=== PATIENT | female | born 1950 | race Hispanic/Latino ===

== ENCOUNTER 2020-04-09 14:38 | Inpatient (IN) | payer MEDICARE ==
[~2020-04-09] VITALS: Ht 152.4 cm; Wt 43.7 kg
[~2020-04-09 14:38] MED LIST: ALEN70TA69 PO; CEFD250S3 PO; GLYB5TAB8 PO; IBUP-2077 PO; INSU100V12 SQ; METF-445 PO; SERT50TA12 PO; SIMV10TA97 PO; [UNRECOGNIZED DRUG - CODE] MC
[2020-04-09 15:25] LABS: BASOPHILS % (AUTO) 0.1 % (0.0-5.0); LYMPHOCYTES % (AUTO) 4.6 % (21.0-51.0); MEAN CORPUSCULAR HEMOGLOBIN 26.8 pg (27.0-33.0); MEAN CORPUSCULAR HGB CONC 31.8 g/dL (32.0-36.0); MEAN CORPUSCULAR VOLUME 84.2 fL (79-99); MONOCYTES % (AUTO) 5.3 % (3.0-13.0); NEUTROPHILS % (AUTO) 89.7 % (40.0-77.0); PLATELET COUNT (AUTO) 188 K/uL (130-400); RED BLOOD CELL COUNT(AUTO) 4.63 MIL/uL (4.00-5.50); WHITE BLOOD COUNT (AUTO) 14.2 K/uL (4.8-10.8)
[2020-04-09 15:37] LABS: POTASSIUM 3.9 mmol/L (3.5-5.1)
[2020-04-09 15:39] LABS: INR 0.92 (0.85-1.15); PARTIAL THROMBOPLASTIN TIME 21.6 SEC (26.3-35.5)
[2020-04-09 15:46] LABS: ALBUMIN 3.5 g/dL (3.5-5.0); BILIRUBIN,TOTAL 1.1 mg/dL (0.2-1.0); TOTAL PROTEIN, SERUM 8.5 g/dL (6.0-8.3)
[2020-04-09] MEDS ORDERED: ONDANSETRON HCL 4 MG/2 ML VIAL ONE (15:54)
[2020-04-09] MEDS ORDERED: MORPHINE SULFATE 2 MG/ML 1ML SYG ONE (15:54)
[2020-04-09] MEDS ORDERED: SODIUM CHLORIDE 0.9% 500ML 500 ML IV ONE (15:55)
[2020-04-09] MEDS ORDERED: HYDRALAZINE HCL 20 MG/ML VIAL IV PRN (16:00)
[2020-04-09] MEDS ORDERED: ZOLPIDEM TARTRATE 5 MG TAB PO PRN (16:00)
[2020-04-09] MEDS ORDERED: LACTULOSE 20 GM/30 ML UDCUP PO PRN (18:45)
[2020-04-09] MEDS ORDERED: DEXTROSE 50%-WATER 50 ML DISP.SYRIN IV PRN (19:00)
[2020-04-09] MEDS: CEFTRIAXONE SODIUM 1 GM IVP SCH (19:00)
[2020-04-09] MEDS ORDERED: GLUCAGON 1MG KIT 1 MG ML IM PRN (19:00)
[2020-04-09] MEDS: FAMOTIDINE 20MG TAB 20 MG TAB PO SCH (21:00)
[2020-04-09] MEDS: INSULIN HUMULIN R 100 UNIT/ML 3ML SQ SCH (21:00)
[2020-04-09] MEDS ORDERED: CEFTRIAXONE SODIUM 1 GM ONE (21:24)
[2020-04-09] MEDS ORDERED: FAMOTIDINE 20MG TAB 20 MG TAB ONE (21:24)
[2020-04-09] MEDS ORDERED: INSULIN HUMULIN R 100 UNIT/ML 3ML ONE (21:25)
[2020-04-09] MEDS ORDERED: ACETAMINOPHEN 325 MG TAB ONE (21:37)
[2020-04-09 22:15] VITALS: BP 129/88
--- NOTE | 2020-04-09 22:15 | NUR ---
ADMISSION PATIENT RECEIVED FROM ER S/P FAL RIGHT INTRATROCHANTERIC FRACTURE OF FEMUR UNDER THE CARE OF . PATIENT AWAKE AND ALERT. VOICES ALL NEEDS. NO COMPLAINTS OF PAIN VOICED AT THIS TIME. VITALS STABLE. AFEBRILE. ORIENTATED TO HOSPITAL AND ROOM. HEAD TO TOE ASSESSMENT DONE. NO SKIN BREAKDOWN NOTED. CALL LIGHT WITHIN REACH. WILL CONTINUE TO BE OBSERVED. Addendum: 04/10/20 at 0615 by SHAUN SAUNDERS RN RN Amended: Links added.
[2020-04-09 22:27] LABS: APPEARANCE,URINE Clear (CLEAR); BILIRUBIN,URINE Negative (NEGATIVE); COLOR,URINE Yellow (YELLOW); GLUCOSE, URINE (UA) >=1000 mg/dL (NEGATIVE); KETONES,URINE >=80 mg/dL (NEGATIVE); LEUKOCYTE ESTERASE ,URINE Negative (NEGATIVE); NITRATE,URINE Negative (NEGATIVE); OCCULT BLOOD,URINE Negative (NEGATIVE); PROTEIN,URINE Trace mg/dL (NEGATIVE)
[2020-04-09] MEDS ORDERED: INSU100V12 SQ (22:49)
[2020-04-09 23:20] LABS: RBC,URINE None Seen /HPF (0-1)
[2020-04-09 23:21] LABS: BACTERIA,URINE Few /HPF (None Seen); SQUAMOUS EPITHELIAL CELL,UR Few /HPF (0-2)
[2020-04-10] MEDS: MORPHINE SULFATE 2 MG/ML 1ML SYG IVP PRN ×4 (01:06→20:08)
[2020-04-10 03:40] VITALS: BP 129/66
[2020-04-10 03:46] LABS: BASOPHILS % (AUTO) 0.3 % (0.0-5.0); EOSINOPHILS % (AUTO) 0.4 % (0.0-8.0); LYMPHOCYTES % (AUTO) 12.4 % (21.0-51.0); MEAN CORPUSCULAR HEMOGLOBIN 26.4 pg (27.0-33.0); MEAN CORPUSCULAR HGB CONC 32.4 g/dL (32.0-36.0); MEAN CORPUSCULAR VOLUME 81.5 fL (79-99); MONOCYTES % (AUTO) 5.9 % (3.0-13.0); NEUTROPHILS % (AUTO) 80.6 % (40.0-77.0); PLATELET COUNT (AUTO) 159 K/uL (130-400); RED BLOOD CELL COUNT(AUTO) 4.05 MIL/uL (4.00-5.50); RED CELL DISTRIBUTION WIDTH 13.7 % (11.0-15.5); WHITE BLOOD COUNT (AUTO) 9.9 K/uL (4.8-10.8)
[2020-04-10 04:06] LABS: ALBUMIN 2.9 g/dL (3.5-5.0); BILIRUBIN,TOTAL 0.7 mg/dL (0.2-1.0); CREATININE 0.8 mg/dL (0.5-1.5); POTASSIUM 3.3 mmol/L (3.5-5.1); TOTAL PROTEIN, SERUM 7.1 g/dL (6.0-8.3)
[2020-04-10] MEDS: INSULIN HUMULIN R 100 UNIT/ML 3ML SQ SCH ×4 (06:41→20:11)
[2020-04-10] MEDS ORDERED: POTASSIUM CHLORIDE 20 MEQ ERTAB PO SCH (07:15)
[2020-04-10 08:09] VITALS: BP 150/58
[2020-04-10] MEDS: FAMOTIDINE 20MG TAB 20 MG TAB PO SCH ×2 (08:59→20:08)
[2020-04-10] MEDS: ENOXAPARIN SODIUM 30 MG/0.3 ML SQ SCH (09:01)
[2020-04-10 11:21] VITALS: BP 144/62
[2020-04-10] MEDS: CEFTRIAXONE SODIUM 1 GM IVP SCH (16:06)
[2020-04-10 16:21] VITALS: BP 141/62
--- NOTE | 2020-04-10 16:56 | NUR ---
DC PLAN VISITED WITH PATIENT. PATIENT LIVES WITH DAUGHTER. SEMI INDEPENDENT WITH ADL'S. PATIENT HAS WHEEL CHAIR AND WALKER. PROVIDER 4 HOURS A DAY. WANTS SHOWER TRANSFER CHAIR AND HOSPITAL BED OKAY WITH GOING TO FACILITY IF NEEDED AFTER SURGERY. Addendum: 04/10/20 at 1658 by ABDIFATAH GUZMAN RN CM Amended: Links added.
[2020-04-10 19:59] VITALS: BP 144/63
[2020-04-10 23:28] VITALS: BP 108/60
[2020-04-11] MEDS: MORPHINE SULFATE 2 MG/ML 1ML SYG IVP PRN ×4 (00:28→16:38)
[2020-04-11 03:58] LABS: BASOPHILS % (AUTO) 0.4 % (0.0-5.0); EOSINOPHILS % (AUTO) 0.5 % (0.0-8.0); HEMATOCRIT 34.6 % (36-48); LYMPHOCYTES % (AUTO) 11.6 % (21.0-51.0); MEAN CORPUSCULAR HEMOGLOBIN 26.7 pg (27.0-33.0); MEAN CORPUSCULAR HGB CONC 32.4 g/dL (32.0-36.0); MEAN CORPUSCULAR VOLUME 82.4 fL (79-99); MONOCYTES % (AUTO) 6.1 % (3.0-13.0); NEUTROPHILS % (AUTO) 81.1 % (40.0-77.0); PLATELET COUNT (AUTO) 163 K/uL (130-400); RED CELL DISTRIBUTION WIDTH 13.9 % (11.0-15.5); WHITE BLOOD COUNT (AUTO) 9.4 K/uL (4.8-10.8)
[2020-04-11 04:02] VITALS: BP 137/61
[2020-04-11 04:11] LABS: CREATININE 0.4 mg/dL (0.5-1.5); POTASSIUM 3.8 mmol/L (3.5-5.1)
[2020-04-11] MEDS: INSULIN HUMULIN R 100 UNIT/ML 3ML SQ SCH ×4 (05:24→22:08)
[2020-04-11 08:00] VITALS: BP 131/60
[2020-04-11] MEDS: FAMOTIDINE 20MG TAB 20 MG TAB PO SCH ×2 (09:00→21:45)
[2020-04-11] MEDS: ENOXAPARIN SODIUM 30 MG/0.3 ML SQ SCH (09:00)
[2020-04-11 12:00] VITALS: BP 123/61
--- NOTE | 2020-04-11 15:27 | NUR ---
Rec'd phone call from Dr. Shea with orders to reschedule pt's surgery for tomorrow @ 0700 am, pt may have diet now, NPO after MN. Orders entered as requested. Notified primary nurse Emelyn who will update pt/family. Notified dietary of need for tray. Notified OR screen printing loader unloader
[2020-04-11 16:00] VITALS: BP 125/47
[2020-04-11] MEDS: SODIUM CHLORIDE 0.9% 1000ML 1,000 ML IV SCH (16:36)
[2020-04-11] MEDS: CEFTRIAXONE SODIUM 1 GM IVP SCH (18:46)
[2020-04-11 20:08] VITALS: BP 134/56
[2020-04-12] VITALS (28 sets, daily range): BP systolic 115–153; BP diastolic 42–99
[2020-04-12] MEDS: MORPHINE SULFATE 2 MG/ML 1ML SYG IVP PRN ×2 (01:15→23:34)
[2020-04-12] MEDS: SODIUM CHLORIDE 0.9% 1000ML 1,000 ML IV SCH ×3 (01:50→15:10)
[2020-04-12 06:00] LABS: BASOPHILS % (AUTO) 0.1 % (0.0-5.0); EOSINOPHILS % (AUTO) 0.8 % (0.0-8.0); HEMATOCRIT 32.5 % (36-48); LYMPHOCYTES % (AUTO) 11.4 % (21.0-51.0); MEAN CORPUSCULAR HEMOGLOBIN 26.4 pg (27.0-33.0); MEAN CORPUSCULAR VOLUME 82.5 fL (79-99); MONOCYTES % (AUTO) 6.8 % (3.0-13.0); NEUTROPHILS % (AUTO) 80.6 % (40.0-77.0); PLATELET COUNT (AUTO) 148 K/uL (130-400); RED BLOOD CELL COUNT(AUTO) 3.94 MIL/uL (4.00-5.50); RED CELL DISTRIBUTION WIDTH 13.3 % (11.0-15.5); WHITE BLOOD COUNT (AUTO) 8.8 K/uL (4.8-10.8)
[2020-04-12] MEDS: INSULIN HUMULIN R 100 UNIT/ML 3ML SQ SCH ×4 (06:11→22:14)
[2020-04-12 06:20] LABS: CREATININE 0.5 mg/dL (0.5-1.5); POTASSIUM 3.4 mmol/L (3.5-5.1)
--- NOTE | 2020-04-12 06:24 | NUR ---
TRANSFER TO OR BY OR NURSE. CHART TRANSFERRED WITH PT- CONSENT IN CHART. DAUGHTER WENT DOWN WITH PT TO OR HOLDING AREA.
[2020-04-12] MEDS ORDERED: MIDAZOLAM HCL 1 MG/ML 2ML VIAL ONE (07:00)
[2020-04-12] MEDS ORDERED: FENTANYL CITRATE PF 50 MCG/1 ML 2ML VIAL ONE (07:00)
[2020-04-12] MEDS ORDERED: LIDOCAINE PF 2% 5ML ABBOJECT ONE (07:00)
[2020-04-12] MEDS ORDERED: PROPOFOL 10 MG/ML 20ML VIAL IV ONE (07:00)
[2020-04-12] MEDS ORDERED: ONDANSETRON HCL 4 MG/2 ML VIAL ONE (07:00)
[2020-04-12] MEDS ORDERED: ROCURONIUM 10MG/1ML SYR 10 MG/ML ML ONE (07:01)
[2020-04-12] MEDS ORDERED: EPHEDRINE SULFATE 50 MG/ML AMPULE ONE (07:12)
[2020-04-12] MEDS ORDERED: ROPIVACAINE 0.5% 5MG/ML 30ML IJ ONE (07:22)
[2020-04-12] MEDS ORDERED: POLYETHYLENE GLYCOL 3350 17 GM POWD.PACK PO SCH ×2 (08:00→16:00)
[2020-04-12] MEDS ORDERED: CEFAZOLIN SODIUM 1 GM VIAL ONE (08:07)
[2020-04-12] MEDS ORDERED: NEOSTIGMINE 5MG/5ML SYR IV ONE (08:09)
[2020-04-12] MEDS ORDERED: GLYCOPYRROLATE 1 MG/5 ML SYRINGE ONE (08:09)
[2020-04-12] MEDS ORDERED: SUGAMMADEX SODIUM 200 MG/2 ML VIAL IV ONE (08:19)
[2020-04-12] MEDS: ENOXAPARIN SODIUM 30 MG/0.3 ML SQ SCH (09:00)
[2020-04-12] MEDS: FAMOTIDINE 20MG TAB 20 MG TAB PO SCH ×2 (09:00→19:54)
[2020-04-12] MEDS ORDERED: DIPHENHYDRAMINE HCL 25 MG CAPSULE PO PRN (09:30)
[2020-04-12] MEDS ORDERED: FERROUS FUMARATE 324 MG TABLET PO PRN (09:30)
[2020-04-12] MEDS ORDERED: DiphenhydrAMINE HCL 50 MG/ML VIAL IVP PRN (09:30)
[2020-04-12] MEDS ORDERED: CALCIUM CARBONATE 500 MG TABLET PO PRN (09:30)
[2020-04-12] MEDS ORDERED: POTASSIUM CHLORIDE 20 MEQ ERTAB PO SCH (16:00)
[2020-04-12] MEDS ORDERED: SENNOSIDES 8.6 MG TABLET PO SCH (16:00)
[2020-04-12] MEDS: ACETAMINOPHEN 325 MG TAB PO PRN (18:56)
[2020-04-12] MEDS: CEFTRIAXONE SODIUM 1 GM IVP SCH (18:59)
[2020-04-13 00:28] VITALS: BP 147/71
[2020-04-13 04:28] VITALS: BP 145/61
[2020-04-13] MEDS: SODIUM CHLORIDE 0.9% 1000ML 1,000 ML IV SCH (04:30)
[2020-04-13 05:50] LABS: BASOPHILS % (AUTO) 0.4 % (0.0-5.0); EOSINOPHILS % (AUTO) 0.9 % (0.0-8.0); HEMATOCRIT 32.2 % (36-48); MEAN CORPUSCULAR HEMOGLOBIN 26.5 pg (27.0-33.0); MEAN CORPUSCULAR VOLUME 82.8 fL (79-99); MONOCYTES % (AUTO) 8.8 % (3.0-13.0); NEUTROPHILS % (AUTO) 82.7 % (40.0-77.0); PLATELET COUNT (AUTO) 156 K/uL (130-400); RED BLOOD CELL COUNT(AUTO) 3.89 MIL/uL (4.00-5.50); RED CELL DISTRIBUTION WIDTH 13.4 % (11.0-15.5); WHITE BLOOD COUNT (AUTO) 8.1 K/uL (4.8-10.8)
[2020-04-13] MEDS: INSULIN HUMULIN R 100 UNIT/ML 3ML SQ SCH ×4 (05:57→21:00)
[2020-04-13 06:05] LABS: CREATININE 0.5 mg/dL (0.5-1.5); MAGNESIUM 1.6 mg/dL (1.80-2.40); POTASSIUM 3.7 mmol/L (3.5-5.1)
[2020-04-13] MEDS ORDERED: MAGNESIUM 2GM PREMIX 50ML 50 ML IV PRN (07:45)
[2020-04-13 08:00] VITALS: BP 146/68
[2020-04-13] MEDS: ENOXAPARIN SODIUM 30 MG/0.3 ML SQ SCH (09:06)
[2020-04-13] MEDS: FAMOTIDINE 20MG TAB 20 MG TAB PO SCH ×2 (09:06→20:51)
[2020-04-13 11:58] VITALS: BP 143/59
[2020-04-13] MEDS: HYDROCODONE/ACETAMINOPHEN 5/325 MG TAB PO PRN ×2 (11:59→20:52)
[2020-04-13] MEDS: METRONIDAZOLE 500 MG TABLET PO SCH ×2 (12:01→20:51)
[2020-04-13] MEDS ORDERED: GADODIAMIDE 10 MMOL/20 ML VIAL IV ONE (12:57)
[2020-04-13 16:00] VITALS: BP 132/66
[2020-04-13] MEDS: CEFTRIAXONE SODIUM 1 GM IVP SCH (18:42)
[2020-04-13 19:00] VITALS: BP 138/64
--- NOTE | 2020-04-13 19:14 | NUR ---
CM NOTE CM attempted to speak to patient regarding MD recommendations for short term snf/rehab. Patient unable to make decision and asked CM to call family member on facesheet. CM attempted phone call to lauri Vaughn on facesheet. No answer, unable to leave message. CM to follow u. Addendum: 04/13/20 at 1916 by ASHLEY DAS CM Amended: Links added.
[2020-04-14] VITALS (7 sets, daily range): BP systolic 116–145; BP diastolic 58–68
[2020-04-14 04:29] LABS: BASOPHILS % (AUTO) 0.2 % (0.0-5.0); EOSINOPHILS % (AUTO) 0.8 % (0.0-8.0); HEMATOCRIT 30.8 % (36-48); LYMPHOCYTES % (AUTO) 8.3 % (21.0-51.0); MEAN CORPUSCULAR HEMOGLOBIN 26.5 pg (27.0-33.0); MEAN CORPUSCULAR HGB CONC 31.8 g/dL (32.0-36.0); MEAN CORPUSCULAR VOLUME 83.2 fL (79-99); MONOCYTES % (AUTO) 8.8 % (3.0-13.0); NEUTROPHILS % (AUTO) 81.7 % (40.0-77.0); PLATELET COUNT (AUTO) 168 K/uL (130-400); RED CELL DISTRIBUTION WIDTH 13.5 % (11.0-15.5); WHITE BLOOD COUNT (AUTO) 5.3 K/uL (4.8-10.8)
[2020-04-14 04:44] LABS: CREATININE 0.6 mg/dL (0.5-1.5); POTASSIUM 3.5 mmol/L (3.5-5.1)
[2020-04-14] MEDS ORDERED: LABETALOL HCL 5 MG/ML 20ML VIAL IV PRN (05:15)
[2020-04-14] MEDS: METRONIDAZOLE 500 MG TABLET PO SCH ×3 (05:27→20:28)
--- NOTE | 2020-04-14 05:33 | NUR ---
LAB CALLED LAB TO ADD ON MAGNESIUM ORDER TO LABS. JESSICA SAID "OK". ORDER PLACED FOR ADD ON
[2020-04-14] MEDS: HYDROCODONE/ACETAMINOPHEN 5/325 MG TAB PO PRN ×2 (06:09→12:17)
[2020-04-14] MEDS: INSULIN HUMULIN R 100 UNIT/ML 3ML SQ SCH ×4 (06:25→21:00)
[2020-04-14] MEDS ORDERED: POTASSIUM CHLORIDE 20 MEQ ERTAB PO SCH (07:30)
[2020-04-14] MEDS: FAMOTIDINE 20MG TAB 20 MG TAB PO SCH ×2 (09:21→20:28)
[2020-04-14] MEDS: ENOXAPARIN SODIUM 30 MG/0.3 ML SQ SCH (09:21)
[2020-04-14] MEDS: ACETAMINOPHEN 325 MG TAB PO PRN ×2 (09:22→17:58)
[2020-04-14] MEDS: POLYETHYLENE GLYCOL 3350 17 GM POWD.PACK PO SCH (09:24)
--- NOTE | 2020-04-14 16:22 | NUR ---
DC MATTY CALLED [facility] NOT AVAILABLE. CALLED TIN UNDERWOOD NO ANSWER LM TO CALL BACK. Addendum: 04/14/20 at 1622 by ABDIFATAH GUZMAN RN CM Amended: Links added.
[2020-04-14] MEDS: CEFTRIAXONE SODIUM 1 GM IVP SCH (18:27)
[2020-04-15 03:46] VITALS: BP 136/70
[2020-04-15] MEDS: METRONIDAZOLE 500 MG TABLET PO SCH ×3 (04:26→21:03)
[2020-04-15 05:31] LABS: BASOPHILS % (AUTO) 0.2 % (0.0-5.0); EOSINOPHILS % (AUTO) 1.3 % (0.0-8.0); HEMATOCRIT 32.3 % (36-48); LYMPHOCYTES % (AUTO) 13.7 % (21.0-51.0); MEAN CORPUSCULAR HEMOGLOBIN 26.1 pg (27.0-33.0); MEAN CORPUSCULAR HGB CONC 32.2 g/dL (32.0-36.0); MEAN CORPUSCULAR VOLUME 81.2 fL (79-99); MONOCYTES % (AUTO) 10.8 % (3.0-13.0); NEUTROPHILS % (AUTO) 73.6 % (40.0-77.0); PLATELET COUNT (AUTO) 186 K/uL (130-400); RED BLOOD CELL COUNT(AUTO) 3.98 MIL/uL (4.00-5.50); WHITE BLOOD COUNT (AUTO) 4.5 K/uL (4.8-10.8)
[2020-04-15 05:47] LABS: CREATININE 0.5 mg/dL (0.5-1.5); POTASSIUM 4.2 mmol/L (3.5-5.1)
[2020-04-15] MEDS: INSULIN HUMULIN R 100 UNIT/ML 3ML SQ SCH ×4 (07:18→21:00)
[2020-04-15 08:01] VITALS: BP 117/58
[2020-04-15] MEDS ORDERED: BISACODYL 10 MG SUPP.RECT RC PRN (09:30)
[2020-04-15] MEDS: POLYETHYLENE GLYCOL 3350 17 GM POWD.PACK PO SCH (10:42)
[2020-04-15] MEDS: FAMOTIDINE 20MG TAB 20 MG TAB PO SCH ×2 (10:44→21:03)
[2020-04-15] MEDS: ENOXAPARIN SODIUM 30 MG/0.3 ML SQ SCH (10:44)
[2020-04-15] MEDS: HYDROCODONE/ACETAMINOPHEN 5/325 MG TAB PO PRN ×2 (10:45→16:47)
[2020-04-15 11:16] VITALS: BP 115/52
--- NOTE | 2020-04-15 13:53 | NUR ---
DC PLAN VISITED WITH PATIENT. STILL A LITTLE CONFUSED. SPOKE TO DAUGHTER SEVERAL TIMES TODAY. SAID WILL BE BY HOSPITAL. DID NOT WANT TO GIVE OKAY FOR SNF OVER THE PHONE. LEFT LIST OF SNF IN ROOM. Addendum: 04/15/20 at 1356 by ABDIFATAH GUZMAN RN CM Amended: Links added.
[2020-04-15 16:41] VITALS: BP 123/44
[2020-04-15 20:00] VITALS: BP 128/62
[2020-04-15] MEDS: CEFTRIAXONE SODIUM 1 GM IVP SCH (21:03)
[2020-04-15 23:37] VITALS: BP 125/58
[2020-04-16] MEDS: HYDROCODONE/ACETAMINOPHEN 5/325 MG TAB PO PRN ×2 (03:22→09:00)
--- NOTE | 2020-04-16 03:27 | NUR ---
PATIENT AWAKE, CRIES OUT, STATES SHE HAS PAIN TO HER LEGS. PRN PAIN MEDICATION ADMINISTERED. WILL CONT TO MONITOR CLOSELY.
[2020-04-16 04:07] VITALS: BP 108/82
[2020-04-16] MEDS: METRONIDAZOLE 500 MG TABLET PO SCH ×3 (04:12→20:07)
[2020-04-16] MEDS: INSULIN HUMULIN R 100 UNIT/ML 3ML SQ SCH ×5 (05:24→21:00)
[2020-04-16 08:21] VITALS: BP 130/64
[2020-04-16] MEDS: FAMOTIDINE 20MG TAB 20 MG TAB PO SCH ×2 (09:00→20:07)
[2020-04-16] MEDS: POLYETHYLENE GLYCOL 3350 17 GM POWD.PACK PO SCH (09:00)
[2020-04-16] MEDS: ENOXAPARIN SODIUM 30 MG/0.3 ML SQ SCH (09:01)
--- NOTE | 2020-04-16 10:24 | NUR ---
SERG PLAN VISITED WITH PATIENT AND DAUGHTER. GOT [facility] FOR [facility], [employer]. SENT PACKET TO [employer]. RUTH ANN HILLIARD. MARY WILL CONTINUE TO FOLLOW. Addendum: 04/16/20 at 1025 by ABDIFATAH GUZMAN RN CM Amended: Links added.
[2020-04-16 11:36] VITALS: BP 132/64
--- NOTE | 2020-04-16 12:30 | NUR ---
RODRIGUEZ REMOVED AFTER 7 CC FLUID REMOVED FROM [place]; PT TOLERATED PROCEDURE WELL AND DIAPER PLACED ON PATIENT .
[2020-04-16 16:23] VITALS: BP 134/65
[2020-04-16] MEDS: CEFTRIAXONE SODIUM 1 GM IVP SCH (18:31)
[2020-04-16 19:35] VITALS: BP 153/78
[2020-04-16] MEDS: INSULIN GLARGINE 100 UNITS/ML 10 ML VIAL SQ SCH ×2 (21:00→21:39)
--- NOTE | 2020-04-16 21:22 | NUR ---
PATIENT RECEIVED IN BED, AAOX2 TO SELF AND PLACE. REORIENTED TO DX AND POC. POD #4 RIGHT FEMUR IM NAILING. DRESSING WAS CHANGED BY DAY SHIFT NURSE. PATIENT REMAINS WITH GENERAL BODY WEAKNESS, REFER TO PHYSICAL THERAPY NOTES. AT THIS TIME PATIENT IS TIRED, SHE DID NOT SLEEP LAST NIGHT OR DURING DAY. RR EVEN AND NON-LABORED. PATIENT WITH POOR ORAL INTAKE. PM INSULIN LANTUS NOT ADMINISTERED D/T POOR ORAL INTAKE. GLUCOSE LEVEL AT 144. WILL CONT TO MONITOR CLOSELY. PATIENT IS HIGH RISK FOR FALLS. Addendum: 04/16/20 at 2140 by JOYA MELGOZA RN RN LANTUS 15 UNITS ADMINISTERED PER ORDERS. REFER TO GLUCOSE TREND
[2020-04-16 23:39] VITALS: BP 115/59
[2020-04-17 03:51] VITALS: BP 132/61
[2020-04-17 03:51] LABS: BASOPHILS % (AUTO) 0.3 % (0.0-5.0); EOSINOPHILS % (AUTO) 0.8 % (0.0-8.0); HEMATOCRIT 33.9 % (36-48); LYMPHOCYTES % (AUTO) 18.5 % (21.0-51.0); MEAN CORPUSCULAR HEMOGLOBIN 26.7 pg (27.0-33.0); MEAN CORPUSCULAR HGB CONC 32.7 g/dL (32.0-36.0); MEAN CORPUSCULAR VOLUME 81.7 fL (79-99); MONOCYTES % (AUTO) 11.2 % (3.0-13.0); NEUTROPHILS % (AUTO) 68.9 % (40.0-77.0); PLATELET COUNT (AUTO) 260 K/uL (130-400); RED BLOOD CELL COUNT(AUTO) 4.15 MIL/uL (4.00-5.50); RED CELL DISTRIBUTION WIDTH 13.3 % (11.0-15.5)
[2020-04-17] MEDS: METRONIDAZOLE 500 MG TABLET PO SCH ×3 (03:53→18:32)
[2020-04-17] MEDS: HYDROCODONE/ACETAMINOPHEN 5/325 MG TAB PO PRN ×3 (03:53→14:40)
[2020-04-17 04:15] LABS: ALBUMIN 2.4 g/dL (3.5-5.0); BILIRUBIN,TOTAL 0.5 mg/dL (0.2-1.0); CREATININE 0.6 mg/dL (0.5-1.5); MAGNESIUM 2.7 mg/dL (1.80-2.40); PHOSPHORUS 4.5 mg/dL (2.5-4.9); POTASSIUM 3.8 mmol/L (3.5-5.1); TOTAL PROTEIN, SERUM 6.9 g/dL (6.0-8.3)
[2020-04-17] MEDS: INSULIN HUMULIN R 100 UNIT/ML 3ML SQ SCH ×9 (06:11→21:17)
[2020-04-17] MEDS: POLYETHYLENE GLYCOL 3350 17 GM POWD.PACK PO SCH (08:41)
[2020-04-17] MEDS: FAMOTIDINE 20MG TAB 20 MG TAB PO SCH ×2 (08:41→19:54)
[2020-04-17] MEDS: ENOXAPARIN SODIUM 30 MG/0.3 ML SQ SCH (08:42)
[2020-04-17 08:53] VITALS: BP 126/65
--- NOTE | 2020-04-17 12:10 | NUR ---
DC PLAN SPOKE TO DR. POON SAID PATIENT SHOULD BE ABLE TO DC TODAY. [facility] COMPLETED AND EMAILED TO [facility]. EMS FORM FILLED AND FAXED. Addendum: 04/17/20 at 1212 by ABDIFATAH GUZMAN RN CM Amended: Links added.
[2020-04-17 13:15] VITALS: BP 138/64
--- NOTE | 2020-04-17 13:55 | NUR ---
COVID PCR DONE, TAKEN TO LAB, WILL CONTINUE TO MONITOR
--- NOTE | 2020-04-17 15:07 | NUR ---
RD NOTIFICATION Pt admitted due to s/p fall and right femur fracture. Pt seen due to LOS x 7, Low BMI, and moderate - severe malnutrition risk. Pt is currently on a 75 GM CC diet and consuming around 25% PO. As per EMR pt has poor appetite and poor PO intake. Pt upon admission was noticed to be constipated. No bowel movements have been reported. Pt is at risk of moderate - severe malnutrition due to low BMI for age, poor PO intake, and mild-moderate muscle/fat wasting as per NFPA. Pt is s/p sx of fixation to rt hip. RD RECOMMENDATION; Glucerna TID ProMod 60 ml BID Consider probiotics if pt has no bowel movements Pt may benefit from warm prune juice to aid in bowel movements. Monitor pt's PO intake and any difficulty in chewing/swallowing. Modify diet as appropriate. RD will continue to monitor pt's condition Contact dietary as nutritional concerns arise LABS: BG 137, MG 2.7, ALB 2.4, TOT PRO 6.9, A1C 11 LBM: Unknown Addendum: 04/17/20 at [address] Amended: Links added.
--- NOTE | 2020-04-17 15:14 | NUR ---
RE: WOUND CARE WOUND CARE DONE TO RIGHT THIGH, DRY AND INTACT, NANCY INTACT, WILL CONTINUE TO MONITOR, PT TOLERATED WELL.
[2020-04-17 16:24] VITALS: BP 149/60
--- NOTE | 2020-04-17 17:01 | NUR ---
RE :MEL MARCANO SPOKE WITH AND PLACED ON CONSULT LIST.
[2020-04-17] MEDS: CEFTRIAXONE SODIUM 1 GM IVP SCH (18:05)
[2020-04-17] MEDS: ACETAMINOPHEN 325 MG TAB PO PRN (19:55)
[2020-04-17 20:24] VITALS: BP 133/73
[2020-04-17] MEDS: INSULIN GLARGINE 100 UNITS/ML 10 ML VIAL SQ SCH (21:18)
[2020-04-18 00:28] VITALS: BP 117/55
[2020-04-18 04:28] VITALS: BP 119/51
[2020-04-18] MEDS: METRONIDAZOLE 500 MG TABLET PO SCH ×2 (04:28→11:17)
[2020-04-18 04:50] LABS: BASOPHILS % (AUTO) 0.3 % (0.0-5.0); EOSINOPHILS % (AUTO) 1.2 % (0.0-8.0); HEMATOCRIT 32.4 % (36-48); LYMPHOCYTES % (AUTO) 19.4 % (21.0-51.0); MEAN CORPUSCULAR HEMOGLOBIN 26.4 pg (27.0-33.0); MEAN CORPUSCULAR HGB CONC 32.1 g/dL (32.0-36.0); MEAN CORPUSCULAR VOLUME 82.2 fL (79-99); MONOCYTES % (AUTO) 12.2 % (3.0-13.0); NEUTROPHILS % (AUTO) 66.3 % (40.0-77.0); PLATELET COUNT (AUTO) 275 K/uL (130-400); RED BLOOD CELL COUNT(AUTO) 3.94 MIL/uL (4.00-5.50); RED CELL DISTRIBUTION WIDTH 13.3 % (11.0-15.5); WHITE BLOOD COUNT (AUTO) 6.5 K/uL (4.8-10.8)
[2020-04-18 05:13] LABS: ALBUMIN 2.3 g/dL (3.5-5.0); BILIRUBIN,TOTAL 0.5 mg/dL (0.2-1.0); CREATININE 0.6 mg/dL (0.5-1.5); POTASSIUM 4.5 mmol/L (3.5-5.1); TOTAL PROTEIN, SERUM 6.5 g/dL (6.0-8.3)
[2020-04-18] MEDS: HYDROCODONE/ACETAMINOPHEN 5/325 MG TAB PO PRN ×2 (07:25→15:53)
[2020-04-18] MEDS: INSULIN HUMULIN R 100 UNIT/ML 3ML SQ SCH ×6 (07:28→17:00)
[2020-04-18 08:00] VITALS: BP 135/63
[2020-04-18 11:00] VITALS: BP 101/52
--- NOTE | 2020-04-18 11:13 | NUR ---
DC PLAN SPOKE TO DR. POON SAID NOT SURE WHAT INDETERMINATE PCR MEANS. SENT FOR ANOTHER PCR. ORIGINAL RAPID NEGATIVE. LET HIM KNOW THAT [facility] CHANGED CRITERIA AND SAID IF PATIENT NOT HAVING SYMPTOMS NO PCR NEEDED. SAID WILL TALK TO DAUGHTER POSSIBLE DC TODAY. Addendum: 04/18/20 at 1114 by ABDIFATAH GUZMAN RN CM Amended: Links added.
[2020-04-18] MEDS: FAMOTIDINE 20MG TAB 20 MG TAB PO SCH (11:18)
[2020-04-18] MEDS: ENOXAPARIN SODIUM 30 MG/0.3 ML SQ SCH (11:22)
[2020-04-18] MEDS: POLYETHYLENE GLYCOL 3350 17 GM POWD.PACK PO SCH (11:27)
--- NOTE | 2020-04-18 11:59 | NUR ---
RD FOLLOW UP Pt is currently on a 75 gm diet with mechanical chopped/mechanical soft modifier. Glucerna TID and ProMod [address] spoke to JET HANDLER, as per JET HANDLER pt ate a good breakfast and consumed 100% of Glucerna ONS. For lunch, RD's office was called, pt disliked meal and requested a second bottle of Glucerna. Date of last bowel movement is unknown. As per JET HANDLER pt has had no bowel movement this AM. RD RECOMMENDATION: Monitor PO intake. Request Glucerna as needed to increase PO intake. Encourage ProMod BID When medically feasible, consider Probiotics to aid pt in having a bowel movement RD will continue to follow pt LABS: CO2 33, BG 286, ALB 2.3, TOT PRO 6.5 Addendum: 04/18/20 at [address] Amended: Links added.
--- NOTE | 2020-04-18 12:31 | NUR ---
PCR RESULTS PCR RESULTS CALLED FROM LAB RESULTS NEGATIVE
[2020-04-18] MEDS: CEFTRIAXONE SODIUM 1 GM IVP SCH (15:56)
[2020-04-18 16:00] VITALS: BP 118/61
--- NOTE | 2020-04-18 18:00 | NUR ---
NOTE PATIENT REMAINED STABLE THROUGHOUT THE DAY. WAS MEDICATED FOR PAIN. SHE WAS CLEARED TO GO TO REHAB FINALLY TODAY BY PRIMARY. REPORT CALLED AND SHE WILL BE ON HER WAY WHEN EMS PICKS HER UP. SHE WILL LEAVE WITH PICC LINE IN PLACE TO RIGHT UPPER ARM. Addendum: 04/18/20 at 2020 by RANDI HOOKS RN NOTE ENTERED ON WRONG PATIENT. MRS UNDERWOOD DID HAVE A STABLE DAY TODAY. SHE WILL LEAVE TO CUSTODIAL SOON. SHE IS LEAVING VIA EMS. WAS FINALLY CLEARED FOR DISCHARGE AFTER WE RECEIVED NEGATIVE COVID PCR REPORT FROM LAB. SHE WILL LEAVE WITH PIV FOR IV MEDICATIONS. REPORT CALL[facility] TO NURSE [facility].
== END 2020-04-18 20:20 | DRG 480 ==
LOC: EDH 14:38 → EDHIP 15:49 → 3AH 19:35
PROVIDERS: ADMIT Hospitalist; ATTEND Hospitalist
PROC: 0QS634Z Reposition Right Upper Femur with Internal Fixation Device, Percutaneous Approach (ICD-10-PCS; principal; 2020-04-12 07:30)
PROC: 3E0T3BZ Introduction of Anesthetic Agent into Peripheral Nerves and Plexi, Percutaneous Approach (ICD-10-PCS; 2020-04-12 07:30)
DX: S72.141A Displaced intertrochanteric fracture of right femur, initial encounter for closed fracture (principal); G93.41 Metabolic encephalopathy; N13.30 Unspecified hydronephrosis; E87.1 Hypo-osmolality and hyponatremia; E44.0 Moderate protein-calorie malnutrition; Z68.1 Body mass index [BMI] 19.9 or less, adult; D72.829 Elevated white blood cell count, unspecified; N31.9 Neuromuscular dysfunction of bladder, unspecified; E11.65 Type 2 diabetes mellitus with hyperglycemia; Z20.828 Contact with and (suspected) exposure to other viral communicable diseases; M81.0 Age-related osteoporosis without current pathological fracture; E78.5 Hyperlipidemia, unspecified; F17.210 Nicotine dependence, cigarettes, uncomplicated; F32.9 Major depressive disorder, single episode, unspecified; F41.9 Anxiety disorder, unspecified; I10 Essential (primary) hypertension; K59.00 Constipation, unspecified; R33.9 Retention of urine, unspecified; W01.0XXA Fall on same level from slipping, tripping and stumbling without subsequent striking against object, initial encounter; Z92.3 Personal history of irradiation; Z92.21 Personal history of antineoplastic chemotherapy; Z91.19 Patient's noncompliance with other medical treatment and regimen; Z85.820 Personal history of malignant melanoma of skin; Z83.3 Family history of diabetes mellitus; Z82.5 Family history of asthma and other chronic lower respiratory diseases; Z82.49 Family history of ischemic heart disease and other diseases of the circulatory system; Z82.3 Family history of stroke; Z82.0 Family history of epilepsy and other diseases of the nervous system; Y93.89 Activity, other specified; Y92.009 Unspecified place in unspecified non-institutional (private) residence as the place of occurrence of the external cause; Y99.8 Other external cause status
CPT/HCPCS: 36415; 70450; 71045; 72125; 73502; 73503; 74176; 74183; 80048; 80053; 81001; 82140; 82550; 82948; 83036; 83735; 84100; 84484; 85025; 85610; 85730; 86850; 86900; 86901; 87426; 93005; 97039; A9579; G0378; J0690; J0696; J1650; J1815; J2001; J2250; J2405; J2704; J2710; J2795; J3010; J3475; J3490; J7030; J7040; U0003

== ENCOUNTER 2020-07-17 10:27 | Emergency (ER) | payer MEDICARE ==
[~2020-07-17 10:27] MED LIST changes: -ALEN70TA69 PO; +ALEN70TA80 PO; -CEFD250S3 PO; -GLYB5TAB8 PO; +SERT-439 PO; -SERT50TA12 PO; -SIMV10TA97 PO; -[UNRECOGNIZED DRUG - CODE] MC
[2020-07-17 11:24] LABS: BASOPHILS % (AUTO) 0.3 % (0.0-5.0); EOSINOPHILS % (AUTO) 0.1 % (0.0-8.0); HEMATOCRIT 37.2 % (36-48); LYMPHOCYTES % (AUTO) 7.9 % (21.0-51.0); MEAN CORPUSCULAR HEMOGLOBIN 26.4 pg (27.0-33.0); MEAN CORPUSCULAR HGB CONC 30.9 g/dL (32.0-36.0); MEAN CORPUSCULAR VOLUME 85.3 fL (79-99); MONOCYTES % (AUTO) 6.2 % (3.0-13.0); NEUTROPHILS % (AUTO) 85.1 % (40.0-77.0); PLATELET COUNT (AUTO) 204 K/uL (130-400); RED BLOOD CELL COUNT(AUTO) 4.36 MIL/uL (4.00-5.50); RED CELL DISTRIBUTION WIDTH 14.6 % (11.0-15.5); WHITE BLOOD COUNT (AUTO) 11.8 K/uL (4.8-10.8)
[2020-07-17 11:31] LABS: CREATININE 0.7 mg/dL (0.5-1.5); POTASSIUM 4.5 mmol/L (3.5-5.1)
[2020-07-17 11:36] LABS: ALBUMIN 3.4 g/dL (3.5-5.0); BILIRUBIN,TOTAL 0.9 mg/dL (0.2-1.0); TOTAL PROTEIN, SERUM 8.6 g/dL (6.0-8.3)
[2020-07-17 12:49] LABS: PROTHROMBIN TIME 10.9 SEC (9.6-11.6)
[2020-07-17 12:51] LABS: PARTIAL THROMBOPLASTIN TIME 21.7 SEC (26.3-35.5)
[2020-07-17 13:19] LABS: APPEARANCE,URINE CLOUDY (CLEAR); BILIRUBIN,URINE NEGATIVE (NEGATIVE); COLOR,URINE YELLOW (YELLOW); GLUCOSE, URINE (UA) >=1000 mg/dL (NEGATIVE); KETONES,URINE >=80 mg/dL (NEGATIVE); LEUKOCYTE ESTERASE ,URINE TRACE (NEGATIVE); NITRATE,URINE NEGATIVE (NEGATIVE); OCCULT BLOOD,URINE NEGATIVE (NEGATIVE); PROTEIN,URINE NEGATIVE (NEGATIVE); UROBILINOGEN,URINE 0.2 mg/dL (0.2-1.0)
[2020-07-17 13:56] LABS: BACTERIA,URINE Few /HPF (None Seen); MUCUS,URINE Few LPF (None Seen); SQUAMOUS EPITHELIAL CELL,UR 0-2 /HPF (0-2); YEAST,URINE BUDDING Moderate /HPF (None Seen)
[2020-07-17 13:57] LABS: AMORPHOUS SEDIMENT,UR Many /LPF (None Seen)
[2020-07-17] MEDS ORDERED: FLUCONAZOLE 100 MG TAB ONE (15:08)
[2020-07-17] MEDS ORDERED: LACTULOSE 20 GM/30 ML UDCUP ONE ×2 (15:08→16:12)
[2020-07-17] MEDS ORDERED: INSULIN HUMULIN R 100 UNIT/ML 3ML ONE (15:09)
[2020-11-25] MEDS ORDERED: CEPH500B PO (23:25)
[2020-11-25] MEDS ORDERED: PHEN-847 PO (23:25)
[2020-11-28] MEDS ORDERED: SERT-439 PO (21:19)
[2020-11-28] MEDS ORDERED: METF-446 PO (21:19)
[2020-11-28] MEDS ORDERED: SIMV10TA97 PO (21:19)
[2020-11-28] MEDS ORDERED: ALEN70TA80 PO (21:19)
[2021-02-04] MEDS ORDERED: LACT10SO9 PO (17:16)
[2021-02-04] MEDS ORDERED: ATOR10 PO (17:17)
[2021-02-04] MEDS ORDERED: LINA5TAB PO (17:19)
[2021-02-04] MEDS ORDERED: ZINC220T4 PO (17:48)
[2021-02-04] MEDS ORDERED: ONDA-104 PO (17:50)
[2021-02-04] MEDS ORDERED: L.AC1CAP6 PO (17:53)
[2021-02-04] MEDS ORDERED: ASCO500T10 PO (17:54)
[2021-02-04] MEDS ORDERED: MULT-1367 PO (17:55)
[2021-02-04] MEDS ORDERED: CARB15DR OP (17:55)
[2021-02-04] MEDS ORDERED: DRON10CA5 PO (17:57)
[2021-02-04] MEDS ORDERED: INSU100I26 SQ (17:58)
[2021-02-04] MEDS ORDERED: DOCU100T PO (17:59)
[2021-02-04] MEDS ORDERED: NICO-704 TD (18:00)
[2021-02-04] MEDS ORDERED: ACET325T51 PO (18:02)
[2021-02-04] MEDS ORDERED: INSU100V3 IJ (18:03)
== END 2020-07-17 18:15 | disposition home or self-care (01) ==
LOC: EDH 10:27
DX: K59.00 Constipation, unspecified (principal); R55 Syncope and collapse; Z20.822 Contact with and (suspected) exposure to COVID-19; F41.9 Anxiety disorder, unspecified; F32.9 Major depressive disorder, single episode, unspecified; E11.9 Type 2 diabetes mellitus without complications; E78.5 Hyperlipidemia, unspecified; Z72.0 Tobacco use
CPT/HCPCS: 36415; 70450; 71045; 74018; 80053; 81001; 82550; 83605; 83880; 84484; 85025; 85610; 85730; 87040 ×2; 87426; 87804 ×2; 87880; 93005; 96361; 96374; 99285; J1815; U0003

== ENCOUNTER 2020-08-17 20:58 | Inpatient (IN) | payer MEDICARE ==
[~2020-08-17] VITALS: Ht 147.3 cm; Wt 44.5 kg
[2020-08-17 21:40] LABS: BASOPHILS % (AUTO) 0.2 % (0.0-5.0); EOSINOPHILS % (AUTO) 0.5 % (0.0-8.0); HEMATOCRIT 35.6 % (36-48); LYMPHOCYTES % (AUTO) 6.9 % (21.0-51.0); MEAN CORPUSCULAR HEMOGLOBIN 26.5 pg (27.0-33.0); MEAN CORPUSCULAR HGB CONC 31.7 g/dL (32.0-36.0); MEAN CORPUSCULAR VOLUME 83.6 fL (79-99); MONOCYTES % (AUTO) 6.5 % (3.0-13.0); NEUTROPHILS % (AUTO) 85.7 % (40.0-77.0); PLATELET COUNT (AUTO) 188 K/uL (130-400); RED BLOOD CELL COUNT(AUTO) 4.26 MIL/uL (4.00-5.50); RED CELL DISTRIBUTION WIDTH 14.6 % (11.0-15.5)
[2020-08-17] MEDS ORDERED: PANTOPRAZOLE 40 MG/VIAL ONE (21:46)
[2020-08-17 21:56] LABS: PROTHROMBIN TIME 10.9 SEC (9.6-11.6)
[2020-08-17 21:58] LABS: PARTIAL THROMBOPLASTIN TIME 21.7 SEC (26.3-35.5)
[2020-08-17 22:13] LABS: ABG OXYGEN SATURATION 37.8 % (95.0-99.0); BASE EXCESS,VENOUS BLOOD GAS -9.3 (-2.0-3.0); HCO3,VENOUS BLOOD GAS 16.9 (21.0-28.0); PCO2,VENOUS BLOOD GAS 38 (32-45)
[2020-08-17 22:21] LABS: ALANINE AMINOTRANSFERASE 11 U/L (12-78); ASPARTATE AMINOTRANSFERASE 18 U/L (10-37); BILIRUBIN,TOTAL 1.1 mg/dL (0.2-1.0); CARBON DIOXIDE 18 mmol/L (21-32); CREATININE 1.5 mg/dL (0.5-1.5); GLOMERULAR FILTR. RATE CALC 37 mL/min (>60); POTASSIUM 3.7 mmol/L (3.5-5.1); SODIUM SERUM 132 mmol/L (136-145); TOTAL PROTEIN, SERUM 7.7 g/dL (6.0-8.3); UREA NITROGEN, BLOOD 44 mg/dL (7-18)
[2020-08-17 22:23] LABS: LIPASE < 50 U/L (114-286)
[2020-08-17 22:24] LABS: CHLORIDE 90 mmol/L (101-111); GLUCOSE,RANDOM 613 mg/dL (70-105)
[2020-08-17] MEDS ORDERED: IOHEXOL-350 75 ML VIAL IV ONE (22:36)
[2020-08-17] MEDS ORDERED: 0.9%NACL 100ML 100 ML IV ONE (22:41)
[2020-08-17] MEDS ORDERED: INSULIN HUMULIN R 100 UNIT/ML 3ML ONE (22:41)
[2020-08-17 23:52] LABS: APPEARANCE,URINE CLOUDY (CLEAR); BILIRUBIN,URINE NEGATIVE (NEGATIVE); COLOR,URINE BROWN (YELLOW); GLUCOSE, URINE (UA) >=1000 mg/dL (NEGATIVE); KETONES,URINE 40 mg/dL (NEGATIVE); LEUKOCYTE ESTERASE ,URINE MODERATE (NEGATIVE); NITRATE,URINE NEGATIVE (NEGATIVE); OCCULT BLOOD,URINE LARGE (NEGATIVE); PROTEIN,URINE 100 mg/dL (NEGATIVE); UROBILINOGEN,URINE 0.2 mg/dL (0.2-1.0)
[2020-08-17] MEDS ORDERED: DEXTROSE 5 %-0.45 % NACL 1,000 ML IV ONE (23:56)
[2020-08-17] MEDS ORDERED: ZOSYN 3.375GM+NS 50ML 50 ML IV ONE (23:58)
[2020-08-18] VITALS (27 sets, daily range): BP systolic 97–157; BP diastolic 43–106
[2020-08-18 00:05] LABS: BACTERIA,URINE Moderate /HPF (None Seen); RBC,URINE 26-50 /HPF (0-1); WBC,URINE TNTC /HPF (0-1); YEAST,URINE BUDDING Many /HPF (None Seen)
[2020-08-18] MEDS ORDERED: 0.9%NACL 1000ML 1,000 ML IV ONE (00:37)
[2020-08-18] MEDS ORDERED: MAG/ALUM/SIMETH 30 ML UDCUP PO PRN (00:45)
[2020-08-18] MEDS ORDERED: ONDANSETRON 4MG INJ IV PRN (00:45)
[2020-08-18] MEDS ORDERED: ACETAMINOPHEN 325 MG TAB PO PRN (00:45)
[2020-08-18] MEDS ORDERED: DIPHENHYDRAMINE HCL 25 MG CAPSULE PO PRN (00:45)
[2020-08-18] MEDS ORDERED: DiphenhydrAMINE HCL 50 MG/ML VIAL IV PRN (00:45)
[2020-08-18] MEDS ORDERED: KCL 20 MEQ ERTAB PO PRN (00:45)
[2020-08-18] MEDS ORDERED: GUAIFENESIN-DM 200/20 MG 10 ML PO PRN (00:45)
[2020-08-18] MEDS ORDERED: INSULIN REGULAR, HUMAN 3ML 100 UNIT in 0.9%NACL 100ML 99 ML IV PRN ×2 (00:45)
[2020-08-18] MEDS ORDERED: NITROGLYCERIN 0.4 MG SL TAB SL PRN (00:45)
[2020-08-18] MEDS ORDERED: POTASSIUM CHLORIDE 20MEQ/100ML 100 ML IV PRN (00:45)
[2020-08-18] MEDS ORDERED: 0.9%NACL 100ML 100 ML IV ONE (02:03)
[2020-08-18] MEDS ORDERED: PANTOPRAZOLE 40 MG/VIAL ONE (02:03)
[2020-08-18 02:31] LABS: BASOPHILS % (AUTO) 0.1 % (0.0-5.0); HEMATOCRIT 25.4 % (36-48); LYMPHOCYTES % (AUTO) 8.8 % (21.0-51.0); MEAN CORPUSCULAR HEMOGLOBIN 25.8 pg (27.0-33.0); MEAN CORPUSCULAR HGB CONC 31.1 g/dL (32.0-36.0); MONOCYTES % (AUTO) 6.5 % (3.0-13.0); NEUTROPHILS % (AUTO) 84.4 % (40.0-77.0); PLATELET COUNT (AUTO) 136 K/uL (130-400); RED BLOOD CELL COUNT(AUTO) 3.06 MIL/uL (4.00-5.50); RED CELL DISTRIBUTION WIDTH 14.6 % (11.0-15.5); WHITE BLOOD COUNT (AUTO) 9.2 K/uL (4.8-10.8)
[2020-08-18 02:44] LABS: ALBUMIN 1.8 g/dL (3.5-5.0); BILIRUBIN,TOTAL 0.5 mg/dL (0.2-1.0); TOTAL PROTEIN, SERUM 4.9 g/dL (6.0-8.3)
[2020-08-18 02:49] LABS: POTASSIUM 2.4 mmol/L (3.5-5.1)
[2020-08-18] MEDS ORDERED: POTASSIUM CHLORIDE 20MEQ/100ML 100 ML IV ONE (03:02)
[2020-08-18] MEDS: 0.9%NACL 1000ML 1,000 ML IV SCH ×4 (04:30→15:52)
[2020-08-18] MEDS: PANTOPRAZOLE 40MG INJ 80 MG in 0.9%NACL 100ML 100 ML IV SCH ×3 (05:49→20:43)
[2020-08-18 06:32] LABS: CREATININE 0.8 mg/dL (0.5-1.5); POTASSIUM 3.5 mmol/L (3.5-5.1)
[2020-08-18] MEDS ORDERED: 0.9% NACL 250ML 250 ML IV ONE (07:13)
[2020-08-18] MEDS: POTASSIUM CHLORIDE 20MEQ/100ML 100 ML IV PRN ×2 (07:20→15:04)
[2020-08-18] MEDS: ZOSYN 3.375GM+NS 50ML 50 ML IV SCH ×2 (08:37→16:18)
[2020-08-18] MEDS ORDERED: MAGNESIUM 2GM PREMIX 50ML 50 ML IV ONE (08:48)
[2020-08-18] MEDS: MAGNESIUM 2GM PREMIX 50ML 50 ML IV SCH (10:30)
[2020-08-18 10:44] LABS: CREATININE 0.8 mg/dL (0.5-1.5); POTASSIUM 3.7 mmol/L (3.5-5.1)
[2020-08-18 14:04] LABS: CREATININE 0.7 mg/dL (0.5-1.5); POTASSIUM 3.1 mmol/L (3.5-5.1)
[2020-08-18] MEDS: INSULIN HUMULIN R 100 UNIT/ML 3ML SQ SCH ×2 (16:20→21:00)
[2020-08-18] MEDS ORDERED: INSULIN GLARGINE 100 UNITS/ML 10 ML VIAL SQ ONE (16:30)
[2020-08-18 18:19] LABS: CREATININE 0.5 mg/dL (0.5-1.5); POTASSIUM 3.5 mmol/L (3.5-5.1)
[2020-08-18 21:52] LABS: CREATININE 0.5 mg/dL (0.5-1.5); POTASSIUM 3.1 mmol/L (3.5-5.1)
[2020-08-19] VITALS (34 sets, daily range): BP systolic 66–148; BP diastolic 26–95
[2020-08-19] MEDS: ZOSYN 3.375GM+NS 50ML 50 ML IV SCH ×3 (01:49→15:21)
[2020-08-19 03:41] LABS: BASOPHILS % (AUTO) 0.2 % (0.0-5.0); EOSINOPHILS % (AUTO) 0.4 % (0.0-8.0); HEMATOCRIT 30.7 % (36-48); LYMPHOCYTES % (AUTO) 8.4 % (21.0-51.0); MEAN CORPUSCULAR HEMOGLOBIN 25.9 pg (27.0-33.0); MEAN CORPUSCULAR HGB CONC 31.6 g/dL (32.0-36.0); MEAN CORPUSCULAR VOLUME 82.1 fL (79-99); MONOCYTES % (AUTO) 4.2 % (3.0-13.0); NEUTROPHILS % (AUTO) 86.5 % (40.0-77.0); PLATELET COUNT (AUTO) 146 K/uL (130-400); RED BLOOD CELL COUNT(AUTO) 3.74 MIL/uL (4.00-5.50); RED CELL DISTRIBUTION WIDTH 14.6 % (11.0-15.5); WHITE BLOOD COUNT (AUTO) 10.6 K/uL (4.8-10.8)
[2020-08-19 03:57] LABS: ALBUMIN 2.1 g/dL (3.5-5.0); BILIRUBIN,TOTAL 0.8 mg/dL (0.2-1.0); CREATININE 0.4 mg/dL (0.5-1.5); POTASSIUM 3.4 mmol/L (3.5-5.1); TOTAL PROTEIN, SERUM 6.2 g/dL (6.0-8.3)
[2020-08-19] MEDS: POTASSIUM CHLORIDE 20MEQ/100ML 100 ML IV PRN ×2 (05:06→09:27)
[2020-08-19] MEDS: INSULIN HUMULIN R 100 UNIT/ML 3ML SQ SCH ×4 (06:18→20:36)
[2020-08-19 09:15] LABS: CREATININE 0.4 mg/dL (0.5-1.5); POTASSIUM 3.4 mmol/L (3.5-5.1)
[2020-08-19] MEDS: PANTOPRAZOLE 40MG INJ 80 MG in 0.9%NACL 100ML 100 ML IV SCH ×2 (09:28→15:34)
[2020-08-19] MEDS ORDERED: EPHEDRINE SULFATE 50 MG/ML AMPULE ONE (12:13)
[2020-08-19] MEDS: MAGNESIUM 2GM PREMIX 50ML 50 ML IV SCH (15:21)
[2020-08-19] MEDS ORDERED: GLUCAGON 1MG KIT 1 MG ML IM PRN (20:00)
[2020-08-19] MEDS ORDERED: DEXTROSE 50%-WATER 50 ML DISP.SYRIN IV PRN (20:00)
[2020-08-19] MEDS: INSULIN GLARGINE 100 UNITS/ML 10 ML VIAL SQ SCH (20:37)
[2020-08-20] MEDS: ZOSYN 3.375GM+NS 50ML 50 ML IV SCH ×3 (00:03→15:53)
[2020-08-20 00:28] VITALS: BP 120/69
[2020-08-20] MEDS: PANTOPRAZOLE 40MG INJ 80 MG in 0.9%NACL 100ML 100 ML IV SCH ×2 (01:48→18:00)
[2020-08-20 04:00] VITALS: BP 124/49
[2020-08-20 05:50] LABS: BASOPHILS % (AUTO) 0.1 % (0.0-5.0); EOSINOPHILS % (AUTO) 0.6 % (0.0-8.0); HEMATOCRIT 30.4 % (36-48); MEAN CORPUSCULAR HEMOGLOBIN 25.5 pg (27.0-33.0); MEAN CORPUSCULAR HGB CONC 31.6 g/dL (32.0-36.0); MEAN CORPUSCULAR VOLUME 80.6 fL (79-99); MONOCYTES % (AUTO) 4.2 % (3.0-13.0); NEUTROPHILS % (AUTO) 86.7 % (40.0-77.0); PLATELET COUNT (AUTO) 148 K/uL (130-400); RED BLOOD CELL COUNT(AUTO) 3.77 MIL/uL (4.00-5.50); RED CELL DISTRIBUTION WIDTH 14.5 % (11.0-15.5); WHITE BLOOD COUNT (AUTO) 8.4 K/uL (4.8-10.8)
[2020-08-20 06:10] LABS: ALBUMIN 2.1 g/dL (3.5-5.0); BILIRUBIN,TOTAL 0.9 mg/dL (0.2-1.0); CREATININE 0.3 mg/dL (0.5-1.5); POTASSIUM 3.3 mmol/L (3.5-5.1); TOTAL PROTEIN, SERUM 6.2 g/dL (6.0-8.3)
[2020-08-20] MEDS: INSULIN HUMULIN R 100 UNIT/ML 3ML SQ SCH ×4 (06:29→21:00)
[2020-08-20] MEDS: POTASSIUM CHLORIDE 10% ELIXIR 20 MEQ/15 ML UDCUP PO PRN ×2 (06:31→21:06)
[2020-08-20 07:52] VITALS: BP 115/54
[2020-08-20] MEDS: TRYPSIN/BALSAM PERU/CASTOR OIL OINT 60GM TUBE TP SCH (09:00)
[2020-08-20 11:58] VITALS: BP 116/59
[2020-08-20] MEDS ORDERED: COMPOUND IV REFRIGERATED 1 EACH IVSOLN MISC PRN (12:15)
[2020-08-20] MEDS: FLUCONAZOLE 400 MG/NS 200 ML 200 ML IV SCH (14:15)
[2020-08-20 16:00] VITALS: BP 119/54
[2020-08-20 20:00] VITALS: BP 122/52
[2020-08-20] MEDS: INSULIN GLARGINE 100 UNITS/ML 10 ML VIAL SQ SCH (21:07)
[2020-08-21] VITALS (7 sets, daily range): BP systolic 112–151; BP diastolic 54–79
[2020-08-21] MEDS: ZOSYN 3.375GM+NS 50ML 50 ML IV SCH ×3 (01:05→15:39)
[2020-08-21 05:05] LABS: HEMATOCRIT 32.3 % (36-48); MEAN CORPUSCULAR HEMOGLOBIN 26.3 pg (27.0-33.0); MEAN CORPUSCULAR HGB CONC 32.8 g/dL (32.0-36.0); MEAN CORPUSCULAR VOLUME 80.1 fL (79-99); PLATELET COUNT (AUTO) 167 K/uL (130-400); RED BLOOD CELL COUNT(AUTO) 4.03 MIL/uL (4.00-5.50); RED CELL DISTRIBUTION WIDTH 14.1 % (11.0-15.5); WHITE BLOOD COUNT (AUTO) 7.5 K/uL (4.8-10.8)
[2020-08-21 05:19] LABS: ALBUMIN 2.4 g/dL (3.5-5.0); BILIRUBIN,TOTAL 0.7 mg/dL (0.2-1.0); CREATININE 0.4 mg/dL (0.5-1.5); MAGNESIUM 1.6 mg/dL (1.80-2.40); POTASSIUM 3.8 mmol/L (3.5-5.1); TOTAL PROTEIN, SERUM 6.9 g/dL (6.0-8.3)
[2020-08-21 05:33] LABS: BAND NEUTROPHILS % (MANUAL) 3 % (0-2); LYMPHOCYTES % (MANUAL) 13 % (22-44); MAN.DIFF COMMENT-IMPRESSION MANUAL DIFFERENTIAL; MONOCYTES % (MANUAL) 7 % (2-9); SEGMENTED NEUTROPHILS % 77 % (40-70)
[2020-08-21] MEDS: MAGNESIUM 2GM PREMIX 50ML 50 ML IV SCH (05:57)
[2020-08-21] MEDS: INSULIN HUMULIN R 100 UNIT/ML 3ML SQ SCH ×4 (06:01→21:41)
[2020-08-21] MEDS: PANTOPRAZOLE 40MG INJ 80 MG in 0.9%NACL 100ML 100 ML IV SCH ×2 (07:27→21:43)
[2020-08-21] MEDS: ACETAMINOPHEN 325 MG TAB PO PRN (08:54)
[2020-08-21] MEDS: TRYPSIN/BALSAM PERU/CASTOR OIL OINT 60GM TUBE TP SCH (12:26)
[2020-08-21] MEDS: FLUCONAZOLE 400 MG/NS 200 ML 200 ML IV SCH (15:39)
[2020-08-21] MEDS: INSULIN GLARGINE 100 UNITS/ML 10 ML VIAL SQ SCH (21:42)
[2020-08-22] MEDS: ZOSYN 3.375GM+NS 50ML 50 ML IV SCH ×3 (01:46→16:00)
[2020-08-22 04:00] VITALS: BP 130/53
[2020-08-22 05:14] LABS: BASOPHILS % (AUTO) 0.2 % (0.0-5.0); EOSINOPHILS % (AUTO) 0.9 % (0.0-8.0); HEMATOCRIT 31.7 % (36-48); LYMPHOCYTES % (AUTO) 15.7 % (21.0-51.0); MEAN CORPUSCULAR HEMOGLOBIN 25.6 pg (27.0-33.0); MEAN CORPUSCULAR HGB CONC 31.5 g/dL (32.0-36.0); MEAN CORPUSCULAR VOLUME 81.3 fL (79-99); MONOCYTES % (AUTO) 6.6 % (3.0-13.0); NEUTROPHILS % (AUTO) 76.1 % (40.0-77.0); PLATELET COUNT (AUTO) 204 K/uL (130-400); RED CELL DISTRIBUTION WIDTH 14.1 % (11.0-15.5); WHITE BLOOD COUNT (AUTO) 9.4 K/uL (4.8-10.8)
[2020-08-22 05:30] LABS: ALBUMIN 2.3 g/dL (3.5-5.0); BILIRUBIN,TOTAL 0.5 mg/dL (0.2-1.0); CREATININE 0.4 mg/dL (0.5-1.5); POTASSIUM 3.6 mmol/L (3.5-5.1); TOTAL PROTEIN, SERUM 6.8 g/dL (6.0-8.3)
[2020-08-22] MEDS: INSULIN HUMULIN R 100 UNIT/ML 3ML SQ SCH ×4 (06:39→20:09)
[2020-08-22 08:00] VITALS: BP 104/43
[2020-08-22] MEDS: TRYPSIN/BALSAM PERU/CASTOR OIL OINT 60GM TUBE TP SCH (09:00)
[2020-08-22] MEDS: PANTOPRAZOLE 40MG INJ 80 MG in 0.9%NACL 100ML 100 ML IV SCH ×4 (10:45→20:06)
[2020-08-22 12:00] VITALS: BP 118/46
[2020-08-22] MEDS: FLUCONAZOLE 400 MG/NS 200 ML 200 ML IV SCH (14:44)
[2020-08-22 16:57] VITALS: BP 128/53
[2020-08-22] MEDS: INSULIN GLARGINE 100 UNITS/ML 10 ML VIAL SQ SCH (20:08)
[2020-08-22 21:23] VITALS: BP 131/52
[2020-08-23] VITALS (7 sets, daily range): BP systolic 93–142; BP diastolic 39–54
[2020-08-23] MEDS: ZOSYN 3.375GM+NS 50ML 50 ML IV SCH ×4 (00:14→23:56)
[2020-08-23 05:30] LABS: BASOPHILS % (AUTO) 0.4 % (0.0-5.0); EOSINOPHILS % (AUTO) 1.3 % (0.0-8.0); HEMATOCRIT 30.6 % (36-48); LYMPHOCYTES % (AUTO) 15.6 % (21.0-51.0); MEAN CORPUSCULAR HEMOGLOBIN 25.3 pg (27.0-33.0); MEAN CORPUSCULAR VOLUME 81.4 fL (79-99); MONOCYTES % (AUTO) 10.5 % (3.0-13.0); NEUTROPHILS % (AUTO) 71.5 % (40.0-77.0); PLATELET COUNT (AUTO) 223 K/uL (130-400); RED BLOOD CELL COUNT(AUTO) 3.76 MIL/uL (4.00-5.50); RED CELL DISTRIBUTION WIDTH 14.4 % (11.0-15.5); WHITE BLOOD COUNT (AUTO) 8.5 K/uL (4.8-10.8)
[2020-08-23] MEDS: INSULIN HUMULIN R 100 UNIT/ML 3ML SQ SCH ×4 (05:48→20:40)
[2020-08-23 05:50] LABS: ALBUMIN 2.2 g/dL (3.5-5.0); BILIRUBIN,TOTAL 0.4 mg/dL (0.2-1.0); CREATININE 0.5 mg/dL (0.5-1.5); POTASSIUM 3.6 mmol/L (3.5-5.1); TOTAL PROTEIN, SERUM 6.6 g/dL (6.0-8.3)
[2020-08-23] MEDS: PANTOPRAZOLE 40MG INJ 80 MG in 0.9%NACL 100ML 100 ML IV SCH (06:00)
[2020-08-23] MEDS: PANTOPRAZOLE 40 MG TAB DR PO SCH (09:51)
[2020-08-23] MEDS: FLUCONAZOLE 400 MG/NS 200 ML 200 ML IV SCH (09:51)
[2020-08-23] MEDS: TRYPSIN/BALSAM PERU/CASTOR OIL OINT 60GM TUBE TP SCH (09:52)
[2020-08-23] MEDS: ACETAMINOPHEN 325 MG TAB PO PRN (10:16)
[2020-08-23] MEDS: LACTULOSE 20 GM/30 ML UDCUP PO PRN (16:53)
[2020-08-23] MEDS: INSULIN GLARGINE 100 UNITS/ML 10 ML VIAL SQ SCH (20:41)
[2020-08-23] MEDS ORDERED: APIX2.5T PO (21:15)
[2020-08-23] MEDS ORDERED: ALEN70TA80 PO (21:15)
[2020-08-23] MEDS ORDERED: SIMV10TA97 PO (21:15)
[2020-08-23] MEDS ORDERED: SERT-439 PO (21:15)
[2020-08-23] MEDS ORDERED: METF-446 PO (21:15)
[2020-08-23] MEDS ORDERED: INSU100V12 SQ (21:15)
[2020-08-23] MEDS ORDERED: SIMVASTATIN 10 MG TABLET ONE (23:52)
[2020-08-23] MEDS ORDERED: SERTRALINE HCL 50 MG TABLET ONE (23:53)
[2020-08-24] MEDS: ACETAMINOPHEN 325 MG TAB PO PRN (00:08)
[2020-08-24 04:16] VITALS: BP 116/54
[2020-08-24 05:42] LABS: BASOPHILS % (AUTO) 0.3 % (0.0-5.0); EOSINOPHILS % (AUTO) 2.1 % (0.0-8.0); HEMATOCRIT 28.3 % (36-48); LYMPHOCYTES % (AUTO) 18.8 % (21.0-51.0); MEAN CORPUSCULAR HEMOGLOBIN 25.2 pg (27.0-33.0); MEAN CORPUSCULAR HGB CONC 30.7 g/dL (32.0-36.0); NEUTROPHILS % (AUTO) 66.1 % (40.0-77.0); PLATELET COUNT (AUTO) 230 K/uL (130-400); RED BLOOD CELL COUNT(AUTO) 3.45 MIL/uL (4.00-5.50); RED CELL DISTRIBUTION WIDTH 14.4 % (11.0-15.5); WHITE BLOOD COUNT (AUTO) 5.7 K/uL (4.8-10.8)
[2020-08-24 06:04] LABS: ALBUMIN 1.9 g/dL (3.5-5.0); BILIRUBIN,TOTAL 0.2 mg/dL (0.2-1.0); CREATININE 0.7 mg/dL (0.5-1.5); MAGNESIUM 1.5 mg/dL (1.80-2.40); TOTAL PROTEIN, SERUM 6.4 g/dL (6.0-8.3)
[2020-08-24] MEDS: MAGNESIUM 2GM PREMIX 50ML 50 ML IV SCH (06:19)
[2020-08-24] MEDS: LACTULOSE 20 GM/30 ML UDCUP PO PRN (06:19)
[2020-08-24] MEDS: INSULIN HUMULIN R 100 UNIT/ML 3ML SQ SCH ×3 (06:26→16:40)
[2020-08-24] MEDS ORDERED: PHARMACY COMMUNICATION MISC SCH (06:45)
[2020-08-24 08:00] VITALS: BP 104/53
[2020-08-24] MEDS: PANTOPRAZOLE 40 MG TAB DR PO SCH (08:51)
[2020-08-24] MEDS ORDERED: APIXABAN 2.5 MG TABLET PO SCH (09:00)
[2020-08-24 11:00] VITALS: BP 121/58
[2020-08-24] MEDS: TRYPSIN/BALSAM PERU/CASTOR OIL OINT 60GM TUBE TP SCH (12:11)
[2020-08-24] MEDS ORDERED: ZOSYN 3.375GM+NS 50ML 50 ML IV SCH (13:00)
[2020-08-24] MEDS: FLUCONAZOLE 400 MG/NS 200 ML 200 ML IV SCH (13:16)
[2020-08-24 16:00] VITALS: BP 123/57
[2020-08-24] MEDS ORDERED: SERTRALINE HCL 50 MG TABLET PO SCH (21:00)
[2020-08-24] MEDS ORDERED: SIMVASTATIN 10 MG TABLET PO SCH (21:00)
[2020-08-29] MEDS ORDERED: ALENDRONATE SODIUM 35 MG TAB PO SCH (06:30)
[2020-11-25] MEDS ORDERED: CEPH500B PO (23:25)
[2020-11-25] MEDS ORDERED: PHEN-847 PO (23:25)
[2020-11-28] MEDS ORDERED: SERT-439 PO (21:19)
[2020-11-28] MEDS ORDERED: ALEN70TA80 PO (21:19)
[2020-11-28] MEDS ORDERED: METF-446 PO (21:19)
[2020-11-28] MEDS ORDERED: SIMV10TA97 PO (21:19)
[2021-02-04] MEDS ORDERED: LACT10SO9 PO (17:16)
[2021-02-04] MEDS ORDERED: ATOR10 PO (17:17)
[2021-02-04] MEDS ORDERED: LINA5TAB PO (17:19)
[2021-02-04] MEDS ORDERED: ZINC220T4 PO (17:48)
[2021-02-04] MEDS ORDERED: ONDA-104 PO (17:50)
[2021-02-04] MEDS ORDERED: L.AC1CAP6 PO (17:53)
[2021-02-04] MEDS ORDERED: ASCO500T10 PO (17:54)
[2021-02-04] MEDS ORDERED: CARB15DR OP (17:55)
[2021-02-04] MEDS ORDERED: MULT-1367 PO (17:55)
[2021-02-04] MEDS ORDERED: DRON10CA5 PO (17:57)
[2021-02-04] MEDS ORDERED: INSU100I26 SQ (17:58)
[2021-02-04] MEDS ORDERED: DOCU100T PO (17:59)
[2021-02-04] MEDS ORDERED: NICO-704 TD (18:00)
[2021-02-04] MEDS ORDERED: ACET325T51 PO (18:02)
[2021-02-04] MEDS ORDERED: INSU100V3 IJ (18:03)
== END 2020-08-24 19:03 | DRG 871 ==
LOC: EDH 20:58 → EDHIP 08-18 00:41 → 2CH 08-18 04:09 → 2DH 08-19 09:58 → 3BH 08-19 15:10
PROVIDERS: ADMIT Family Medicine; ATTEND Family Medicine
PROC: 0DJ08ZZ Inspection of Upper Intestinal Tract, Via Natural or Artificial Opening Endoscopic (ICD-10-PCS; principal; 2020-08-19)
DX: A41.9 Sepsis, unspecified organism (principal); E11.10 Type 2 diabetes mellitus with ketoacidosis without coma; R65.21 Severe sepsis with septic shock; E43 Unspecified severe protein-calorie malnutrition; N17.9 Acute kidney failure, unspecified; B49 Unspecified mycosis; G93.40 Encephalopathy, unspecified; Z16.24 Resistance to multiple antibiotics; N13.6 Pyonephrosis; K92.2 Gastrointestinal hemorrhage, unspecified; K52.9 Noninfective gastroenteritis and colitis, unspecified; E86.0 Dehydration; Z90.49 Acquired absence of other specified parts of digestive tract; Z82.49 Family history of ischemic heart disease and other diseases of the circulatory system; Z83.3 Family history of diabetes mellitus; Z82.0 Family history of epilepsy and other diseases of the nervous system; Z82.3 Family history of stroke; F41.9 Anxiety disorder, unspecified; F32.9 Major depressive disorder, single episode, unspecified; F17.210 Nicotine dependence, cigarettes, uncomplicated; Z85.820 Personal history of malignant melanoma of skin; I10 Essential (primary) hypertension; E86.1 Hypovolemia; Z74.01 Bed confinement status; R53.81 Other malaise; L89.152 Pressure ulcer of sacral region, stage 2; Z68.20 Body mass index [BMI] 20.0-20.9, adult; Z79.4 Long term (current) use of insulin; K21.00 Gastro-esophageal reflux disease with esophagitis, without bleeding; Z79.899 Other long term (current) drug therapy; F19.10 Other psychoactive substance abuse, uncomplicated
CPT/HCPCS: 36415; 36600; 43235; 70450; 71045; 74176; 74177; 80048; 80053; 81001; 82010; 82270; 82550; 82803; 82947; 82948; 83605; 83690; 83735; 84484; 85018; 85025; 85610; 85730; 86850; 86900; 86901; 86923; 87040; 87088; 93005; 93306; 93356; 97039; A4344; A4346; A4606; C9113; G0378; J1450; J1815; J2543; J3475; J3480; J3490; J7030; J7042; J7050; Q0163; Q9958; Q9967

== ENCOUNTER 2020-09-24 18:01 | Emergency (ER) | payer MEDICARE ==
[~2020-09-24 18:01] MED LIST changes: +APIX2.5T PO; -IBUP-2077 PO; -METF-445 PO; +METF-446 PO; +SIMV10TA97 PO
[2020-09-24 19:16] LABS: BASOPHILS % (AUTO) 0.3 % (0.0-5.0); EOSINOPHILS % (AUTO) 3.4 % (0.0-8.0); HEMATOCRIT 34.8 % (36-48); LYMPHOCYTES % (AUTO) 24.2 % (21.0-51.0); MEAN CORPUSCULAR HEMOGLOBIN 24.9 pg (27.0-33.0); MEAN CORPUSCULAR HGB CONC 31.3 g/dL (32.0-36.0); MEAN CORPUSCULAR VOLUME 79.6 fL (79-99); NEUTROPHILS % (AUTO) 66.9 % (40.0-77.0); PLATELET COUNT (AUTO) 276 K/uL (130-400); RED BLOOD CELL COUNT(AUTO) 4.37 MIL/uL (4.00-5.50); RED CELL DISTRIBUTION WIDTH 15.1 % (11.0-15.5); WHITE BLOOD COUNT (AUTO) 8.9 K/uL (4.8-10.8)
[2020-09-24 19:26] LABS: APPEARANCE,URINE CLOUDY (CLEAR); BILIRUBIN,URINE NEGATIVE (NEGATIVE); COLOR,URINE YELLOW (YELLOW); GLUCOSE, URINE (UA) NEGATIVE (NEGATIVE); KETONES,URINE 5 mg/dL (NEGATIVE); LEUKOCYTE ESTERASE ,URINE LARGE (NEGATIVE); NITRATE,URINE NEGATIVE (NEGATIVE); OCCULT BLOOD,URINE LARGE (NEGATIVE); PROTEIN,URINE 30 mg/dL (NEGATIVE)
[2020-09-24 19:30] LABS: CREATININE 0.6 mg/dL (0.5-1.5)
[2020-09-24 19:35] LABS: BILIRUBIN,TOTAL 0.5 mg/dL (0.2-1.0)
[2020-09-24 20:03] LABS: BACTERIA,URINE Few /HPF (None Seen); SQUAMOUS EPITHELIAL CELL,UR Rare /HPF (0-2); TRANSITIONAL EPI CELLS,URINE Rare /HPF (None Seen); YEAST,URINE BUDDING Few /HPF (None Seen)
[2020-09-24] MEDS ORDERED: CEFTRIAXONE SODIUM 1 GM ONE (20:03)
[2020-09-24] MEDS ORDERED: SODIUM CHLORIDE 0.9% 1000ML 1,000 ML IV ONE (20:04)
[2020-09-24 20:05] LABS: WBC,URINE 51-100 /HPF (0-1)
[2020-09-24] MEDS ORDERED: IOHEXOL-350 75 ML VIAL IV ONE (20:49)
== END 2020-09-24 22:31 | disposition home or self-care (01) ==
LOC: EDH 18:01
DX: T83.098A Other mechanical complication of other urinary catheter, initial encounter (principal); N30.00 Acute cystitis without hematuria; R33.9 Retention of urine, unspecified; E11.9 Type 2 diabetes mellitus without complications; E78.5 Hyperlipidemia, unspecified; Z72.0 Tobacco use
CPT/HCPCS: 36415; 51702; 74177; 80053; 81001; 85025; 87077; 87088; 87186; 96365; 99285; J0696; J7030; Q9967

== ENCOUNTER 2020-10-16 09:54 | Emergency (ER) | payer MEDICARE ==
[2020-10-16] MEDS ORDERED: CEFTRIAXONE 1G VIAL ONE (10:32)
[2020-10-16] MEDS ORDERED: FLUCONAZOLE 100 MG TAB ONE (10:32)
[2020-10-16] MEDS ORDERED: 0.9% NACL 50ML 50 ML IV ONE (10:33)
[2020-10-16 10:38] LABS: BASOPHILS % (AUTO) 0.3 % (0.0-5.0); EOSINOPHILS % (AUTO) 1.2 % (0.0-8.0); HEMATOCRIT 35.2 % (36-48); LYMPHOCYTES % (AUTO) 12.5 % (21.0-51.0); MEAN CORPUSCULAR HEMOGLOBIN 24.2 pg (27.0-33.0); MEAN CORPUSCULAR HGB CONC 30.7 g/dL (32.0-36.0); MEAN CORPUSCULAR VOLUME 78.7 fL (79-99); MONOCYTES % (AUTO) 5.2 % (3.0-13.0); NEUTROPHILS % (AUTO) 80.5 % (40.0-77.0); PLATELET COUNT (AUTO) 240 K/uL (130-400); RED BLOOD CELL COUNT(AUTO) 4.47 MIL/uL (4.00-5.50); RED CELL DISTRIBUTION WIDTH 15.2 % (11.0-15.5); WHITE BLOOD COUNT (AUTO) 11.6 K/uL (4.8-10.8)
[2020-10-16 10:48] LABS: CREATININE 0.7 mg/dL (0.5-1.5); POTASSIUM 3.8 mmol/L (3.5-5.1)
[2020-10-16 10:52] LABS: ALBUMIN 3.1 g/dL (3.5-5.0); BILIRUBIN,TOTAL 0.5 mg/dL (0.2-1.0); TOTAL PROTEIN, SERUM 8.4 g/dL (6.0-8.3)
[2020-10-16 11:05] LABS: APPEARANCE,URINE CLOUDY (CLEAR); BILIRUBIN,URINE NEGATIVE (NEGATIVE); COLOR,URINE YELLOW (YELLOW); GLUCOSE, URINE (UA) 100 mg/dL (NEGATIVE); KETONES,URINE NEGATIVE (NEGATIVE); LEUKOCYTE ESTERASE ,URINE MODERATE (NEGATIVE); NITRATE,URINE NEGATIVE (NEGATIVE); OCCULT BLOOD,URINE LARGE (NEGATIVE); PROTEIN,URINE 100 mg/dL (NEGATIVE); UROBILINOGEN,URINE 0.2 mg/dL (0.2-1.0)
[2020-10-16 11:19] LABS: BACTERIA,URINE Many /HPF (None Seen); SQUAMOUS EPITHELIAL CELL,UR Rare /HPF (0-2); WBC,URINE TNTC /HPF (0-1)
[2020-10-16] MEDS ORDERED: 0.9%NACL 500ML 500 ML IV ONE (11:36)
== END 2020-10-16 18:11 | disposition home or self-care (01) ==
LOC: EDH 09:54
DX: N39.0 Urinary tract infection, site not specified (principal); F41.9 Anxiety disorder, unspecified; E86.0 Dehydration; F32.9 Major depressive disorder, single episode, unspecified; E11.9 Type 2 diabetes mellitus without complications; I10 Essential (primary) hypertension; Z72.0 Tobacco use
CPT/HCPCS: 36415; 80053; 81001; 85025; 87077; 87088; 87186; 96361; 96365; 99284; J0696; J7040

== ENCOUNTER 2020-11-27 21:16 | Emergency (ER) | payer MEDICARE ==
[~2020-11-27] VITALS: Ht 144.8 cm; Wt 45.4 kg
[2020-11-27] MEDS ORDERED: 0.9%NACL 1000ML 1,000 ML IV ONE (23:00)
[2020-11-27 23:05] LABS: BASOPHILS % (AUTO) 0.2 % (0.0-5.0); EOSINOPHILS % (AUTO) 0.7 % (0.0-8.0); LYMPHOCYTES % (AUTO) 16.5 % (21.0-51.0); MEAN CORPUSCULAR HEMOGLOBIN 24.3 pg (27.0-33.0); MEAN CORPUSCULAR HGB CONC 30.6 g/dL (32.0-36.0); MEAN CORPUSCULAR VOLUME 79.2 fL (79-99); MONOCYTES % (AUTO) 8.7 % (3.0-13.0); NEUTROPHILS % (AUTO) 73.7 % (40.0-77.0); PLATELET COUNT (AUTO) 209 K/uL (130-400); RED BLOOD CELL COUNT(AUTO) 4.04 MIL/uL (4.00-5.50); RED CELL DISTRIBUTION WIDTH 16.5 % (11.0-15.5); WHITE BLOOD COUNT (AUTO) 8.1 K/uL (4.8-10.8)
[2020-11-27 23:12] LABS: CREATININE 0.5 mg/dL (0.5-1.5); POTASSIUM 4.2 mmol/L (3.5-5.1)
[2020-11-27 23:20] LABS: ALBUMIN 2.9 g/dL (3.5-5.0); BILIRUBIN,TOTAL 0.5 mg/dL (0.2-1.0); TOTAL PROTEIN, SERUM 8.1 g/dL (6.0-8.3)
[2020-11-28 00:17] LABS: BILIRUBIN,URINE Small (NEGATIVE); COLOR,URINE Dark Yellow (YELLOW); GLUCOSE, URINE (UA) Negative (NEGATIVE); KETONES,URINE Negative (NEGATIVE); LEUKOCYTE ESTERASE ,URINE Large (NEGATIVE); NITRATE,URINE Positive (NEGATIVE); OCCULT BLOOD,URINE Moderate (NEGATIVE); PH,URINE 7.5 (5.0-8.0); PROTEIN,URINE 300 mg/dL (NEGATIVE)
[2020-11-28 00:18] LABS: APPEARANCE,URINE CLOUDY (CLEAR)
[2020-11-28 00:31] LABS: BACTERIA,URINE Many /HPF (None Seen); WBC,URINE 51-100 /HPF (0-1)
[2020-11-28 00:32] LABS: SQUAMOUS EPITHELIAL CELL,UR Rare /HPF (0-2)
[2020-11-28 01:55] VITALS: BP 121/48
[2020-11-28] MEDS ORDERED: CEFTRIAXONE 2GM VIAL ONE (02:39)
[2020-11-28] MEDS ORDERED: CEFTRIAXONE 2GM VIAL IVP ONE (02:45)
[2020-11-28] MEDS ORDERED: MAGN296S76 PO (02:51)
[2020-11-28] MEDS ORDERED: CEPH250C2 PO (02:51)
[2020-11-28] MEDS ORDERED: DSSL PO (02:51)
[2020-11-28 03:26] VITALS: BP 118/53
== END 2020-11-28 03:49 | disposition home or self-care (01) ==
LOC: EDH 22:34
DX: K59.00 Constipation, unspecified (principal); N39.0 Urinary tract infection, site not specified; E86.0 Dehydration; E11.9 Type 2 diabetes mellitus without complications; F32.9 Major depressive disorder, single episode, unspecified; Z79.4 Long term (current) use of insulin; Z79.899 Other long term (current) drug therapy
CPT/HCPCS: 36415; 74176; 80053; 81001; 85025; 87077; 87088; 87186; 96361; 96374; 99284; J0696; J7030